=== PATIENT | female | born 1940 | race Caucasian/White ===

== ENCOUNTER 2016-11-16 12:42 | Inpatient (IN) | payer MEDICARE, MEDICAID ==
[~2016-11-16] VITALS: Ht 152.4 cm; Wt 59.2 kg
--- NOTE | 2016-11-16 12:57 | NUR ---
PT IS IN ROOM #2A. DR RANKIN EVALUATED THE PT.
[2016-11-16] MEDS ORDERED: IV NORMAL SALINE 500 ML BAG IV ONE (13:15)
[2016-11-16 13:33] LABS: BASOPHILS % (AUTO) 0.6 % (0.0-2.0); EOSINOPHILS # (AUTO) 0.5 K/uL (0.0-0.7); EOSINOPHILS % (AUTO) 7.2 % (0.0-7.0); HEMATOCRIT 36.7 % (37-47); HEMOGLOBIN 12.1 G/DL (12.0-16.0); LYMPHOCYTES # (AUTO) 1.4 K/UL (0.8-4.8); LYMPHOCYTES % (AUTO) 19.8 % (20.5-51.5); MEAN CORPUSCULAR HEMOGLOBIN 31.9 UUG (27.0-31.0); MEAN CORPUSCULAR HGB CONC 33 g/dL (32.0-37.0); MEAN CORPUSCULAR VOLUME 96.6 FL (81.0-99.0); MONOCYTES # (AUTO) 0.6 K/UL (0.1-1.30); MONOCYTES % (AUTO) 8.1 % (0.0-11.0); NEUTROPHILS # (AUTO) 4.8 K/UL (1.8-8.9); NEUTROPHILS % (AUTO) 64.3 % (38.5-71.5); PLATELET COUNT (AUTO) 204 K/UL (150-450); WHITE BLOOD COUNT (AUTO) 7.3 K/UL (4.0-11.2)
[2016-11-16 13:37] LABS: CARBON DIOXIDE 33 mmol/L (21-32); CHLORIDE 95 mmol/L (98-107); CREATININE 5.1 mg/dL (0.6-1.3); GLUCOSE 173 mg/dL (74-106); POTASSIUM 4.8 mmol/L (3.5-5.1); UREA NITROGEN, BLOOD 26 mg/dL (7-18)
[2016-11-16 13:42] LABS: ALANINE AMINOTRANSFERASE 19 U/L (14-59); ALKALINE PHOSPHATASE 81 U/L (50-136); ASPARTATE AMINOTRANSFERASE 15 U/L (15-37); BILIRUBIN,DIRECT 0.1 mg/dL (0.0-0.2); BILIRUBIN,TOTAL 0.4 mg/dL (0.2-1.0); TOTAL PROTEIN, SERUM 7.3 g/dL (6.4-8.2)
[2016-11-16] MEDS ORDERED: CALC-903 PO (13:42)
[2016-11-16] MEDS ORDERED: SPIR25TA4 PO (13:42)
[2016-11-16] MEDS ORDERED: GLIP5TAB13 PO (13:42)
[2016-11-16] MEDS ORDERED: CHOL10002 PO (13:42)
[2016-11-16] MEDS ORDERED: CLON0.1T PO (13:42)
[2016-11-16] MEDS ORDERED: ATOR20TA PO (13:42)
[2016-11-16] MEDS ORDERED: CALC-494 PO (13:42)
[2016-11-16] MEDS ORDERED: CARV12.52 PO (13:42)
[2016-11-16] MEDS ORDERED: OMEG1CAP PO (13:42)
[2016-11-16] MEDS ORDERED: ASPI81TA31 PO (13:42)
[2016-11-16] MEDS ORDERED: DEXT31GE3 PO (13:42)
[2016-11-16] MEDS ORDERED: GLUC1KIT IJ (13:42)
[2016-11-16] MEDS ORDERED: LISI-603 PO (13:42)
[2016-11-16] MEDS ORDERED: BLOO-140 IN (13:42)
[2016-11-16] MEDS ORDERED: MELA3TAB PO (13:42)
[2016-11-16] MEDS ORDERED: HYDR-4077 PO (13:42)
[2016-11-16] MEDS ORDERED: NIFE30TA2 PO (13:42)
[2016-11-16 14:01] LABS: *BILIRUBIN,URIN NEGATIVE (NEGATIVE); *BLOOD, URINE Trace-intact (NEGATIVE); *CLARITY,URINE SLIGHTLY CLOUDY (CLEAR); *COLOR,URINE LIGHT YELLOW (YELLOW); *KETONES,URINE NEGATIVE (NEGATIVE); *UROBILINOGEN,URINE 0.2 E.U./dl (NORMAL); LEUKOCYTE ESTERASE ,URINE 1+ (NEGATIVE); NITRITE, URINE NEGATIVE (NEGATIVE); PH,URINE 8.5 (5.0-8.0)
[2016-11-16 14:03] LABS: *PROTEIN,URINE 3+ (NEGATIVE); UGLUCOSE 1+ (NEGATIVE)
[2016-11-16 14:08] LABS: BACTERIA,URINE MODERATE /HPF (NONE SEEN); RBC,URINE 0-3 /HPF (0-3); SQUAMOUS EPITHELIAL CELL,UR MANY /HPF (NONE SEEN)
[2016-11-16 14:20] VITALS: BP 155/55
--- NOTE | 2016-11-16 15:56 | NUR ---
REPORT WAS GIVEN TO RN M/S , PT WAS TRANSFERED TO ROOM #217.
--- NOTE | 2016-11-16 16:20 | NUR ---
patient admit at Med/Surg complained of weakness. she is on dialysis with history of Dementia HTN and DM type2. Patient is under care of Dr.Oleg Blake. MD notified of admission and done at [facility].
[2016-11-16] MEDS ORDERED: TEMAZEPAM 15 MG CAPSULE PO PRN (17:15)
[2016-11-16] MEDS ORDERED: DEXTROSE 50% 50 ML DISP.SYRIN IV PRN (17:15)
[2016-11-16] MEDS ORDERED: MORPHINE SULFATE 2 MG/1 ML DISP.SYRIN IV PRN (17:15)
[2016-11-16] MEDS ORDERED: CARVEDILOL 12.5 MG TABLET PO SCH (17:15)
[2016-11-16] MEDS ORDERED: ACETAMINOPHEN 325 MG TABLET PO PRN (17:15)
[2016-11-16] MEDS ORDERED: TEMAZEPAM 7.5 MG CAPSULE PO PRN (17:45)
[2016-11-16] MEDS ORDERED: MORPHINE SULFATE 4 MG/1 ML DISP.SYRIN IV PRN (17:45)
[2016-11-16] MEDS: CARVEDILOL 25 MG TABLET PO SCH (18:26)
[2016-11-16] MEDS: CEFTRIAXONE 1 G in IV DEXTROSE 5% 50 ML IV SCH (18:27)
[2016-11-16 19:00] VITALS: BP 157/60
[2016-11-16 19:48] VITALS: BP 157/60
[2016-11-16] MEDS: DOCUSATE SODIUM 100 MG CAPSULE PO SCH (20:35)
[2016-11-16] MEDS: ATORVASTATIN 20 MG TABLET PO SCH (20:35)
[2016-11-16] MEDS: BLOOD SUGAR DIAGNOSTIC 1 EACH STRIP VI SCH (20:40)
[2016-11-16] MEDS: INSULIN REGULAR, HUMAN 300 UNIT/3 ML VIAL SQ PRN (20:42)
[2016-11-16] MEDS: MELATONIN 3 MG TABLET PO SCH (21:50)
[2016-11-16] MEDS: hydrALAZINE HCL 50 MG TABLET PO SCH (21:50)
[2016-11-17 05:00] VITALS: BP 144/45
[2016-11-17] MEDS: PANTOPRAZOLE SODIUM 40 MG TABLET.DR PO SCH (06:23)
[2016-11-17] MEDS: hydrALAZINE HCL 50 MG TABLET PO SCH ×3 (06:23→21:55)
[2016-11-17] MEDS: BLOOD SUGAR DIAGNOSTIC 1 EACH STRIP VI SCH ×4 (06:25→20:24)
[2016-11-17 07:38] LABS: BASOPHILS # (AUTO) 0.1 K/uL (0.0-8.0); BASOPHILS % (AUTO) 0.5 % (0.0-2.0); EOSINOPHILS # (AUTO) 0.2 K/uL (0.0-0.7); EOSINOPHILS % (AUTO) 1.9 % (0.0-7.0); HEMATOCRIT 37.2 % (37-47); HEMOGLOBIN 12.4 G/DL (12.0-16.0); LYMPHOCYTES # (AUTO) 1.6 K/UL (0.8-4.8); LYMPHOCYTES % (AUTO) 14.7 % (20.5-51.5); MEAN CORPUSCULAR HEMOGLOBIN 32.2 UUG (27.0-31.0); MEAN CORPUSCULAR HGB CONC 33 g/dL (32.0-37.0); MONOCYTES # (AUTO) 0.3 K/UL (0.1-1.30); MONOCYTES % (AUTO) 2.7 % (0.0-11.0); NEUTROPHILS # (AUTO) 8.4 K/UL (1.8-8.9); NEUTROPHILS % (AUTO) 80.2 % (38.5-71.5); PLATELET COUNT (AUTO) 177 K/UL (150-450); RED BLOOD CELL COUNT(AUTO) 3.84 MIL/UL (4.2-5.4); WHITE BLOOD COUNT (AUTO) 10.6 K/UL (4.0-11.2)
[2016-11-17] MEDS: glipiZIDE 5 MG TABLET PO SCH ×2 (07:48→16:55)
[2016-11-17] MEDS: CARVEDILOL 25 MG TABLET PO SCH ×2 (07:51→17:05)
[2016-11-17 08:00] LABS: IRON, SERUM 57 ug/dL (50-175)
[2016-11-17 08:01] LABS: ALANINE AMINOTRANSFERASE 21 U/L (14-59); ALKALINE PHOSPHATASE 77 U/L (50-136); ASPARTATE AMINOTRANSFERASE 31 U/L (15-37); BILIRUBIN,TOTAL 0.7 mg/dL (0.2-1.0); CARBON DIOXIDE 29 mmol/L (21-32); CHLORIDE 95 mmol/L (98-107); CHOLESTEROL 182 mg/dL (<200); CREATININE 6.5 mg/dL (0.6-1.3); GLUCOSE 163 mg/dL (74-106); HDL CHOLESTEROL 53 mg/dL (40-60); MAGNESIUM 2.2 mg/dL (1.8-2.4); PHOSPHOROUS 5.1 mg/dL (2.5-4.9); POTASSIUM 5.5 mmol/L (3.5-5.1); TOTAL PROTEIN, SERUM 7.4 g/dL (6.4-8.2); TRIGLYCERIDES 61 MG/DL (30-150); UREA NITROGEN, BLOOD 40 mg/dL (7-18)
[2016-11-17] MEDS: LISINOPRIL 20 MG TABLET PO SCH ×2 (08:08→20:25)
[2016-11-17] MEDS: CHOLECALCIFEROL 1,000 UNIT TABLET PO SCH (08:08)
[2016-11-17] MEDS: CALCIUM CARBONATE 600 MG TABLET PO SCH (08:08)
[2016-11-17] MEDS: NIFEdipine XL 30 MG TABSR PO SCH ×2 (08:08→16:55)
[2016-11-17] MEDS: ASPIRIN 81 MG TAB.CHEW PO SCH (08:08)
[2016-11-17 08:24] LABS: THYROID STIMULATING HORMONE 2.025 mIU/mL (0.358-3.740)
[2016-11-17] MEDS ORDERED: OMEGA-3 FATTY ACIDS/FISH OIL CAPSULE PO SCH (09:00)
--- NOTE | 2016-11-17 09:58 | NUR ---
PT OFF UNIT VIA BED FOR CT OF HEAD. PT. RESTING COMFORTABLY.
--- NOTE | 2016-11-17 10:20 | NUR ---
PT. RETURN VIA BED FROM CT. PT. TOL. FELICIANO. BED IN LOWEST POSITION. CALL LIGHT W/IN REACH. Addendum: 11/17/16 at 1022 by NIRAV AGEE RN Amended: Links added.
[2016-11-17 11:08] VITALS: BP 157/55
--- NOTE | 2016-11-17 12:07 | NUR ---
DIALYSIS NURSE AT .
[2016-11-17] MEDS: INSULIN REGULAR, HUMAN 300 UNIT/3 ML VIAL SQ PRN (13:18)
[2016-11-17 15:10] VITALS: BP 140/65
[2016-11-17] MEDS: CEFTRIAXONE 1 G in IV DEXTROSE 5% 50 ML IV SCH (17:04)
--- NOTE | 2016-11-17 18:41 | NUR ---
Pt. tolerated dialysis. Spoke with daughter re. pt. status. per phone. Fair to good appetite. No acute distress.
[2016-11-17 20:00] VITALS: BP 109/77
[2016-11-17] MEDS: ATORVASTATIN 20 MG TABLET PO SCH (20:25)
[2016-11-17] MEDS: MELATONIN 3 MG TABLET PO SCH (20:26)
[2016-11-17] MEDS: DOCUSATE SODIUM 100 MG CAPSULE PO SCH (20:26)
[2016-11-18] MEDS: CLONIDINE HCL 0.1 MG TABLET PO PRN (04:10)
[2016-11-18 04:37] VITALS: BP 165/65
--- NOTE | 2016-11-18 06:30 | NUR ---
PT BARELY SLEPT THROUGHOUT THE SHIFT, PT STATED "I AM NOT SLEEPY". PT IS IN NO ACUTE DISTRESS, ACCUCHECKS ORDERED, NO HYPO/HYPERGLYCEMIA EPISODES NOTED. PAULINE FISTULA INTACT, NO S/S OF BLEEDING. PT FREQUENTLY AMBULATES UNASSISTED TO THE TOILET. CONSTANT REMINDERS TO PATIENT REGARDING SAFETY/FALL RISK, TO ASK ASSISTANCE WHEN GOING TO THE TOILET. PT VERBALIZED UNDERSTANDING BUT STILL GOES OUT OF BED. CALL LIGHT WITHIN REACH, BED ALARM ON. WILL CONTINUE TO MONITOR.
[2016-11-18] MEDS: PANTOPRAZOLE SODIUM 40 MG TABLET.DR PO SCH (06:34)
[2016-11-18] MEDS: glipiZIDE 5 MG TABLET PO SCH ×2 (06:34→18:03)
[2016-11-18] MEDS: BLOOD SUGAR DIAGNOSTIC 1 EACH STRIP VI SCH ×4 (06:34→20:35)
[2016-11-18] MEDS: hydrALAZINE HCL 50 MG TABLET PO SCH ×3 (06:35→22:15)
[2016-11-18 06:59] LABS: BASOPHILS # (AUTO) 0.1 K/uL (0.0-8.0); BASOPHILS % (AUTO) 0.9 % (0.0-2.0); EOSINOPHILS # (AUTO) 0.6 K/uL (0.0-0.7); HEMATOCRIT 32.5 % (37-47); HEMOGLOBIN 11.1 G/DL (12.0-16.0); LYMPHOCYTES % (AUTO) 27.3 % (20.5-51.5); MEAN CORPUSCULAR HEMOGLOBIN 32.8 UUG (27.0-31.0); MEAN CORPUSCULAR HGB CONC 34 g/dL (32.0-37.0); MEAN CORPUSCULAR VOLUME 96.1 FL (81.0-99.0); MONOCYTES # (AUTO) 0.7 K/UL (0.1-1.30); MONOCYTES % (AUTO) 9.5 % (0.0-11.0); NEUTROPHILS # (AUTO) 3.8 K/UL (1.8-8.9); NEUTROPHILS % (AUTO) 54.3 % (38.5-71.5); PLATELET COUNT (AUTO) 189 K/UL (150-450); RED BLOOD CELL COUNT(AUTO) 3.38 MIL/UL (4.2-5.4); WHITE BLOOD COUNT (AUTO) 7.2 K/UL (4.0-11.2)
[2016-11-18 07:20] LABS: CARBON DIOXIDE 29 mmol/L (21-32); CHLORIDE 102 mmol/L (98-107); CREATININE 5.4 mg/dL (0.6-1.3); GLUCOSE 123 mg/dL (74-106); MAGNESIUM 2.3 mg/dL (1.8-2.4); PHOSPHOROUS 4.5 mg/dL (2.5-4.9); POTASSIUM 4.2 mmol/L (3.5-5.1); UREA NITROGEN, BLOOD 33 mg/dL (7-18)
[2016-11-18] MEDS: OMEGA-3 FATTY ACIDS/FISH OIL CAPSULE PO SCH (08:49)
[2016-11-18] MEDS: CHOLECALCIFEROL 1,000 UNIT TABLET PO SCH (08:50)
[2016-11-18] MEDS: CALCIUM CARBONATE 600 MG TABLET PO SCH (08:50)
[2016-11-18] MEDS: LISINOPRIL 20 MG TABLET PO SCH ×2 (08:50→20:36)
[2016-11-18] MEDS: ASPIRIN 81 MG TAB.CHEW PO SCH (08:50)
[2016-11-18] MEDS: CARVEDILOL 25 MG TABLET PO SCH ×2 (08:51→18:04)
[2016-11-18] MEDS: NIFEdipine XL 30 MG TABSR PO SCH ×2 (08:53→18:04)
[2016-11-18 11:48] VITALS: BP 158/58
[2016-11-18] MEDS: INSULIN REGULAR, HUMAN 300 UNIT/3 ML VIAL SQ PRN ×2 (12:57→20:38)
[2016-11-18 15:29] VITALS: BP 150/62
[2016-11-18] MEDS: CEFTRIAXONE 1 G in IV DEXTROSE 5% 50 ML IV SCH (18:05)
--- NOTE | 2016-11-18 18:56 | NUR ---
PT. REQUESTING TO SLEEP FOR PART OF AM. OOB TO BR AND CHAIR FOR MEALS. GOOD APPETITE. NO ACUTE DISTRESS NOTED. PT. WATCHING TV AND SHE FEELS MORE RESTED IN AFTERNOON.
[2016-11-18] MEDS: ATORVASTATIN 20 MG TABLET PO SCH (20:35)
[2016-11-18] MEDS: DOCUSATE SODIUM 100 MG CAPSULE PO SCH (20:35)
[2016-11-18] MEDS: MELATONIN 3 MG TABLET PO SCH (20:37)
--- NOTE | 2016-11-18 21:51 | NUR ---
RECEIVED PT IN BED, ALERT AND RESPONSIVE. RESP IS EVEN AND UNLABORED NO SOB, NO ACUTE DISTRESS. NO C/O PAIN AT THIS TIME. CALL LIGHT WITH IN REACH. WILL CONT TO MONITOR.
[2016-11-19 04:24] VITALS: BP 175/54
[2016-11-19 05:29] VITALS: BP 151/47
[2016-11-19 05:54] LABS: BASOPHILS # (AUTO) 0.1 K/uL (0.0-8.0); EOSINOPHILS # (AUTO) 0.6 K/uL (0.0-0.7); EOSINOPHILS % (AUTO) 7.6 % (0.0-7.0); HEMATOCRIT 31.6 % (37-47); LYMPHOCYTES # (AUTO) 2.3 K/UL (0.8-4.8); LYMPHOCYTES % (AUTO) 30.5 % (20.5-51.5); MEAN CORPUSCULAR HEMOGLOBIN 33.3 UUG (27.0-31.0); MEAN CORPUSCULAR HGB CONC 35 g/dL (32.0-37.0); MEAN CORPUSCULAR VOLUME 95.8 FL (81.0-99.0); MONOCYTES # (AUTO) 0.6 K/UL (0.1-1.30); NEUTROPHILS # (AUTO) 3.9 K/UL (1.8-8.9); NEUTROPHILS % (AUTO) 52.9 % (38.5-71.5); PLATELET COUNT (AUTO) 188 K/UL (150-450); WHITE BLOOD COUNT (AUTO) 7.5 K/UL (4.0-11.2)
[2016-11-19 06:11] LABS: CARBON DIOXIDE 28 mmol/L (21-32); CHLORIDE 99 mmol/L (98-107); CREATININE 7.2 mg/dL (0.6-1.3); GLUCOSE 86 mg/dL (74-106); MAGNESIUM 2.4 mg/dL (1.8-2.4); PHOSPHOROUS 6.2 mg/dL (2.5-4.9); POTASSIUM 4.2 mmol/L (3.5-5.1); UREA NITROGEN, BLOOD 46 mg/dL (7-18)
[2016-11-19] MEDS: BLOOD SUGAR DIAGNOSTIC 1 EACH STRIP VI SCH ×4 (06:39→20:37)
[2016-11-19] MEDS: hydrALAZINE HCL 50 MG TABLET PO SCH ×3 (06:40→21:45)
[2016-11-19] MEDS: PANTOPRAZOLE SODIUM 40 MG TABLET.DR PO SCH (06:40)
[2016-11-19] MEDS: glipiZIDE 5 MG TABLET PO SCH ×2 (06:40→16:52)
--- NOTE | 2016-11-19 07:05 | NUR ---
Pt is in bed awake, alert and responsive. Resp is even and unlabored no sob. No evidence of acute distress, bed in low position c side rails up x2. Call light is within reach.
--- NOTE | 2016-11-19 07:49 | NUR ---
Received report from hourly shift nurse, patient is in bed awake, no evidence of distress, no SOB, bed in low position, side rails up x2. Patient is alert and oriented, watching TV, plan of care explained for the day.
[2016-11-19] MEDS: OMEGA-3 FATTY ACIDS/FISH OIL CAPSULE PO SCH (08:19)
[2016-11-19] MEDS: ASPIRIN 81 MG TAB.CHEW PO SCH (08:19)
[2016-11-19] MEDS: CALCIUM CARBONATE 600 MG TABLET PO SCH (08:20)
[2016-11-19] MEDS: CHOLECALCIFEROL 1,000 UNIT TABLET PO SCH (08:20)
[2016-11-19] MEDS: NIFEdipine XL 30 MG TABSR PO SCH ×2 (08:21→16:53)
[2016-11-19] MEDS: LISINOPRIL 20 MG TABLET PO SCH ×2 (08:21→20:36)
[2016-11-19] MEDS: CARVEDILOL 25 MG TABLET PO SCH ×2 (08:22→16:53)
[2016-11-19] MEDS: CLONIDINE HCL 0.1 MG TABLET PO PRN (11:36)
[2016-11-19] MEDS: INSULIN REGULAR, HUMAN 300 UNIT/3 ML VIAL SQ PRN ×3 (11:42→20:35)
[2016-11-19 11:44] VITALS: BP 191/58
[2016-11-19 12:16] VITALS: BP 176/52
[2016-11-19 16:08] VITALS: BP 142/55
--- NOTE | 2016-11-19 16:34 | NUR ---
gave report to leela as the nurse for the remainder of the shift. patient is in bed, side rails up x2, bed in low position, patient does not appear to be in any distress, no SOB, alert and oriented watching TV.
[2016-11-19] MEDS: CEFTRIAXONE 1 G in IV DEXTROSE 5% 50 ML IV SCH (16:56)
--- NOTE | 2016-11-19 19:33 | NUR ---
Received report from AM shift, pt is in bed. Awake alert and responsive. Resp is even and unlabored. No SOB, No acute distress. Pt in bed, resting comfortably, watching tv. Call light within reach. Will cont to monitor.
[2016-11-19 19:51] VITALS: BP 156/57
[2016-11-19] MEDS: MELATONIN 3 MG TABLET PO SCH (20:36)
[2016-11-19] MEDS: DOCUSATE SODIUM 100 MG CAPSULE PO SCH (20:36)
[2016-11-19] MEDS: ATORVASTATIN 20 MG TABLET PO SCH (20:36)
[2016-11-20 05:03] VITALS: BP 138/55
[2016-11-20] MEDS: hydrALAZINE HCL 50 MG TABLET PO SCH ×3 (05:14→21:36)
[2016-11-20] MEDS: PANTOPRAZOLE SODIUM 40 MG TABLET.DR PO SCH (06:56)
[2016-11-20] MEDS: BLOOD SUGAR DIAGNOSTIC 1 EACH STRIP VI SCH ×4 (06:56→21:08)
--- NOTE | 2016-11-20 07:00 | NUR ---
PT IN BED, RESP IS EVEN AND UNLABORED. RESP IS EVEN AND UNLABORED. NO SOB. ALL DUE MEDS GIVEN ORDERED AND ANASTACIO WELL. FSBS NOTED AT 51, NO DIAPHORESIS, CHILLS WEAKNESS NOTED. PROVIDED A CUP OF ORANGE JUICE AND 2 PIPER CRACKERS TO PT AND ANASTACIO WELL. CALL LIGHT WITHIN REACH, WILL CONT TO MONITOR.
[2016-11-20] MEDS: glipiZIDE 5 MG TABLET PO SCH ×2 (07:30→17:23)
[2016-11-20] MEDS: ASPIRIN 81 MG TAB.CHEW PO SCH (08:25)
[2016-11-20] MEDS: OMEGA-3 FATTY ACIDS/FISH OIL CAPSULE PO SCH (08:25)
[2016-11-20] MEDS: CALCIUM CARBONATE 600 MG TABLET PO SCH (08:26)
[2016-11-20] MEDS: CHOLECALCIFEROL 1,000 UNIT TABLET PO SCH (08:26)
[2016-11-20] MEDS: CARVEDILOL 25 MG TABLET PO SCH ×2 (08:36→17:23)
[2016-11-20] MEDS: NIFEdipine XL 30 MG TABSR PO SCH ×2 (08:37→17:23)
[2016-11-20] MEDS: LISINOPRIL 20 MG TABLET PO SCH ×2 (08:37→20:28)
[2016-11-20] MEDS: MINOXIDIL 2.5 MG TABLET PO SCH ×2 (11:19→20:28)
[2016-11-20 16:52] VITALS: BP 167/63
[2016-11-20] MEDS: CEFTRIAXONE 1 G in IV DEXTROSE 5% 50 ML IV SCH (17:29)
--- NOTE | 2016-11-20 18:13 | NUR ---
PATIENT HAD DIALYSIS TODAY, 2.5L REMOVED, PATIENT'S BP CONTINUES TO BE HIGH DURING DIALYSIS AND AFTER MEDICATION INTERVENTION, PHYSICIAN IS AWARE. PATIENT IS IN BED WATCHING TV, NO EVIDENCE OF DISTRESS NOTED, NO SOB.
[2016-11-20 19:00] VITALS: BP 174/64
--- NOTE | 2016-11-20 19:30 | NUR ---
RECEIVED PATIENT LAYING IN BED COMFORTABLY. NO ACUTE DISTRESS NOTED. SAFETY INITIATED. NOTED AV SHUNT ON THE LEFT UPPER ARM WRAPPED UP WITH KIRLEX. SKIN INTACT. BRP. CALL LIGHT WITHIN REACH. WILL CONTINUE TO MONITOR.
[2016-11-20] MEDS: DOCUSATE SODIUM 100 MG CAPSULE PO SCH (20:27)
[2016-11-20] MEDS: ATORVASTATIN 20 MG TABLET PO SCH (20:28)
[2016-11-20] MEDS: MELATONIN 3 MG TABLET PO SCH (20:31)
[2016-11-20] MEDS: INSULIN REGULAR, HUMAN 300 UNIT/3 ML VIAL SQ PRN (21:07)
[2016-11-20 23:14] VITALS: BP 155/56
[2016-11-21 04:00] VITALS: BP 135/52
--- NOTE | 2016-11-21 06:19 | NUR ---
PATIENT SLEPT INTERMITTENTLY T/O THE NIGHT. NO ACUTE DISTRESS NOTED. BRP. AV SHUNT ON THE LEFT UPPER ARM PATENT AND INTACT. ALL NEEDS MET. SAFETY AND COMFORT MEASURES MAINTAINED T/O SHIFT. CALL LIGHT WITHIN REACH. B/P WAS ALL OVER THE PLACE T/O SHIFT. MEDS GIVEN ORDERED. CLOSELY MONITORED B/P. CONTROLLED. 0400 V/S WNL.
[2016-11-21] MEDS: glipiZIDE 5 MG TABLET PO SCH ×2 (06:32→16:10)
[2016-11-21] MEDS: hydrALAZINE HCL 50 MG TABLET PO SCH ×2 (06:32→14:00)
[2016-11-21] MEDS: PANTOPRAZOLE SODIUM 40 MG TABLET.DR PO SCH (06:32)
[2016-11-21] MEDS: BLOOD SUGAR DIAGNOSTIC 1 EACH STRIP VI SCH ×3 (06:32→16:10)
[2016-11-21] MEDS: MINOXIDIL 2.5 MG TABLET PO SCH (08:22)
[2016-11-21] MEDS: CHOLECALCIFEROL 1,000 UNIT TABLET PO SCH (08:22)
[2016-11-21] MEDS: ASPIRIN 81 MG TAB.CHEW PO SCH (08:22)
[2016-11-21] MEDS: OMEGA-3 FATTY ACIDS/FISH OIL CAPSULE PO SCH (08:22)
[2016-11-21] MEDS: NIFEdipine XL 30 MG TABSR PO SCH ×2 (08:22→16:15)
[2016-11-21] MEDS: CARVEDILOL 25 MG TABLET PO SCH (08:23)
[2016-11-21] MEDS: LISINOPRIL 20 MG TABLET PO SCH (08:23)
[2016-11-21] MEDS: CALCIUM CARBONATE 600 MG TABLET PO SCH (08:23)
--- NOTE | 2016-11-21 08:43 | NUR ---
PT AWAKE IN BED, WATCHING TV, ATE BREAKFAST AND MORNING MEDICATIONS WERE ADMINISTERED, BP 160/56. BED ALARM ON AND REMINDED TO USE CALL WHEN NEEDS FOR RESTROOM ARISE. ALL SAFETY AND COMFORT MEASURES ATTENDED TO, CALL LIGHT IN REACH, WILL CONTINUE TO MONITOR
[2016-11-21 11:50] VITALS: BP 169/48
[2016-11-21] MEDS ORDERED: MINO2.5T PO (14:22)
[2016-11-21] MEDS ORDERED: HYDR50TA68 PO (14:22)
[2016-11-21] MEDS ORDERED: PANT40TA2 PO (14:22)
[2016-11-21 16:00] VITALS: BP 152/37
[2016-11-21 16:15] VITALS: BP 185/60
--- NOTE | 2016-11-21 17:16 | NUR ---
DISCHARGE PROTOCOL FOLLOWED, PT VERY ANTSY TO LEAVE. IV REMOVED WITH NO REDNESS OR IRRITATION NOTED, ALL BELONGINGS ACCOUNTED FOR AND SENT WITH PATIENT. PT LEFT VIA GURNEY WITH AMBULANCE STAFF, REPORT CALLED AND GIVEN TO RN AT [facility]
[2016-11-21] MEDS ORDERED: MINOXIDIL 2.5 MG TABLET PO SCH (21:00)
== END 2016-11-21 17:00 | DRG 291 ==
LOC: ER 12:42 → MED 16:03
PROVIDERS: ADMIT Internal Medicine; ATTEND Internal Medicine
DX: I13.2 Hypertensive heart and chronic kidney disease with heart failure and with stage 5 chronic kidney disease, or end stage renal disease (principal); N18.6 End stage renal disease; I50.33 Acute on chronic diastolic (congestive) heart failure; D68.59 Other primary thrombophilia; N39.0 Urinary tract infection, site not specified; F01.51 Vascular dementia, unspecified severity, with behavioral disturbance; Z99.2 Dependence on renal dialysis; G44.009 Cluster headache syndrome, unspecified, not intractable; R26.9 Unspecified abnormalities of gait and mobility; Z74.09 Other reduced mobility; Z88.8 Allergy status to other drugs, medicaments and biological substances; I11.0 Hypertensive heart disease with heart failure; M19.90 Unspecified osteoarthritis, unspecified site; Z79.4 Long term (current) use of insulin; Z79.84 Long term (current) use of oral hypoglycemic drugs; E11.22 Type 2 diabetes mellitus with diabetic chronic kidney disease; I27.2 Other secondary pulmonary hypertension; Z86.73 Personal history of transient ischemic attack (TIA), and cerebral infarction without residual deficits; E03.9 Hypothyroidism, unspecified; E78.5 Hyperlipidemia, unspecified; D64.9 Anemia, unspecified; Z79.899 Other long term (current) drug therapy; I70.0 Atherosclerosis of aorta; R53.1 Weakness
CPT/HCPCS: 36415; 70030-TC; 70450; 71010; 83550; 83735; 84100; 84443; 85025; 85730; 86850; 86900; 86901; 87086; 93005; 93307; 97161; A4663; J0696; J1815; J7040; J7050; J7060

== ENCOUNTER 2018-06-28 22:37 | Inpatient (IN) | payer MEDICARE, OTHER ==
[~2018-06-28] VITALS: Ht 157.5 cm; Wt 50.3 kg
[~2018-06-28 22:37] MED LIST: ACET-2154 PO; ASPI81TA31 PO; BLOO-140 IN; CALC-903 PO; CARV12.52 PO; CHOL10002 PO; CLON0.1T PO; DEXT31GE5 PO; GLIP5TAB13 PO; GLUC1KIT IJ; HYDR100T27 PO; LISI40TA4 PO; MINO2.5T PO; NIFE60TA2 PO; OMEG1CAP PO
--- NOTE | 2018-06-28 22:45 | NUR ---
Dr. Benito at bedside for MSE.
[2018-06-28] MEDS ORDERED: IV NORMAL SALINE 1000 ML BAG IV ONE (23:00)
[2018-06-28] MEDS ORDERED: ONDANSETRON 4 MG/2 ML VIAL IV ONE (23:00)
[2018-06-28] MEDS ORDERED: ONDANSETRON 4 MG/2 ML VIAL ONE (23:07)
[2018-06-28 23:17] LABS: BASOPHILS # (AUTO) 0.1 K/uL (0.0-8.0); BASOPHILS % (AUTO) 0.9 % (0.0-2.0); EOSINOPHILS # (AUTO) 0.3 K/uL (0.0-0.7); HEMATOCRIT 36.9 % (31.2-41.9); HEMOGLOBIN 12.3 g/dL (10.9-14.3); LYMPHOCYTES # (AUTO) 0.8 K/uL (20.0-40.0); LYMPHOCYTES % (AUTO) 6.1 % (20.5-51.5); MEAN CORPUSCULAR HGB CONC 33 g/dL (32.3-35.6); MEAN CORPUSCULAR VOLUME 95.9 fL (75.5-95.3); MONOCYTES # (AUTO) 0.5 K/uL (2.0-10.0); MONOCYTES % (AUTO) 3.8 % (0.0-11.0); NEUTROPHILS # (AUTO) 11.5 K/uL (1.8-8.9); NEUTROPHILS % (AUTO) 87.2 % (38.5-71.5); PLATELET COUNT (AUTO) 136 K/uL (179-408); RED BLOOD CELL COUNT(AUTO) 3.85 MIL/uL (3.63-4.92); WHITE BLOOD COUNT (AUTO) 13.1 K/uL (3.8-11.8)
--- NOTE | 2018-06-28 23:23 | NUR ---
Pt out of ER for CT.
[2018-06-28 23:24] LABS: ALANINE AMINOTRANSFERASE 15 U/L (14-59); ALKALINE PHOSPHATASE 86 U/L (50-136); ASPARTATE AMINOTRANSFERASE 18 U/L (15-37); BILIRUBIN,DIRECT 0.1 mg/dL (0.0-0.2); BILIRUBIN,TOTAL 0.5 mg/dL (0.2-1.0); CARBON DIOXIDE 30 mmol/L (21-32); CHLORIDE 102 mmol/L (98-107); CREATININE 2.6 mg/dL (0.6-1.3); GLUCOSE 171 mg/dL (74-106); LIPASE 299 U/L (73-393); TOTAL PROTEIN, SERUM 7.5 g/dL (6.4-8.2); UREA NITROGEN, BLOOD 14 mg/dL (7-18)
--- NOTE | 2018-06-28 23:45 | NUR ---
Pt back to ER from CT.
--- NOTE | 2018-06-29 02:38 | NUR ---
Report given to Tyron RAM Medsurg.
[2018-06-29 03:11] VITALS: BP 136/40
--- NOTE | 2018-06-29 03:30 | NUR ---
THIS IS A 77 Y.O. FEMALE ADMITTED FOR COLITIS, SHE DENIES ABDOMINAL PAIN OR NAUSEA ON ASSESSMENT. ADMISSION ASSESSMENT DONE, SAFETY MEASURES INITIATED, CALL LIGHT LEFT WITHIN PATIENT'S REACH, BED ALARM ON.
[2018-06-29] MEDS ORDERED: MAGNESIUM HYDROXIDE 30 ML LIQUID UDC PO PRN (05:00)
[2018-06-29] MEDS ORDERED: ZOLPIDEM 5 MG TABLET PO PRN (05:00)
[2018-06-29] MEDS ORDERED: ACETAMINOPHEN 325 MG TABLET PO PRN (05:00)
[2018-06-29] MEDS ORDERED: ONDANSETRON 4 MG/2 ML VIAL IV PRN (05:00)
[2018-06-29] MEDS ORDERED: HYDROCODONE/APAP 5-325MG TABLET PO PRN (05:00)
[2018-06-29] MEDS ORDERED: MORPHINE SULFATE 2 MG/1 ML DISP.SYRIN IV PRN (05:00)
[2018-06-29] MEDS ORDERED: CIPROFLOXACIN IV 400 MG in PREMIXED 1 EACH IV SCH (05:30)
[2018-06-29] MEDS ORDERED: METRONIDAZOLE 500 MG/NS 100ML 500 MG in PREMIXED 1 EACH IV SCH (06:00)
[2018-06-29] MEDS: IV NS 1000 ML 1,000 ML IV PRN ×2 (06:07→21:27)
[2018-06-29] MEDS: METRONIDAZOLE 500 MG/NS 100ML 500 MG in PREMIXED 1 EACH IV SCH ×3 (08:11→21:23)
[2018-06-29] MEDS: CIPROFLOXACIN IV 400 MG in PREMIXED 1 EACH IV SCH (08:15)
[2018-06-29] MEDS: PANTOPRAZOLE SODIUM 40 MG VIAL IV SCH (08:15)
[2018-06-29 11:13] VITALS: BP 124/43
[2018-06-29 15:44] VITALS: BP 127/42
--- NOTE | 2018-06-29 19:33 | NUR ---
ASLEEP BUT EASILY AROUSABLE, NO S/S OF ACUTE DISTRESS OR DISCOMFORT. SAFETY MEASURES IN PLACE, WILL CONTINUE TO MONITOR PATIENT
[2018-06-29 20:00] VITALS: BP 140/46
[2018-06-30 04:00] VITALS: BP 153/48
[2018-06-30] MEDS: METRONIDAZOLE 500 MG/NS 100ML 500 MG in PREMIXED 1 EACH IV SCH ×3 (04:55→21:33)
[2018-06-30] MEDS: PANTOPRAZOLE SODIUM 40 MG VIAL IV SCH (08:05)
[2018-06-30] MEDS: CIPROFLOXACIN IV 400 MG in PREMIXED 1 EACH IV SCH (08:05)
[2018-06-30 08:14] LABS: CARBON DIOXIDE 24 mmol/L (21-32); CHLORIDE 105 mmol/L (98-107); CHOLESTEROL 171 mg/dL (<200); CREATININE 4.1 mg/dL (0.6-1.3); GLUCOSE 103 mg/dL (74-106); HDL CHOLESTEROL 50 mg/dL (40-60); MAGNESIUM 1.8 mg/dL (1.8-2.4); POTASSIUM 5.9 mmol/L (3.5-5.1); TRIGLYCERIDES 96 MG/DL (30-150); UREA NITROGEN, BLOOD 19 mg/dL (7-18)
[2018-06-30] MEDS ORDERED: SODIUM POLYSTYRENE SULFONATE 15 G/60 ML LIQUID UDC PO ONE (09:45)
[2018-06-30] MEDS: CARVEDILOL 25 MG TABLET PO SCH ×2 (10:26→17:08)
[2018-06-30] MEDS: hydrALAZINE HCL 50 MG TABLET PO SCH ×2 (10:30→21:00)
[2018-06-30] MEDS ORDERED: CARVEDILOL 12.5 MG TABLET PO SCH (10:30)
[2018-06-30] MEDS: MINOXIDIL 2.5 MG TABLET PO SCH ×2 (10:30→21:31)
[2018-06-30] MEDS ORDERED: ACETAMINOPHEN 325 MG TABLET PO PRN (10:30)
[2018-06-30] MEDS: LISINOPRIL 20 MG TABLET PO SCH (10:30)
[2018-06-30] MEDS: NIFEdipine XL 60 MG TABSR PO SCH ×2 (10:30→16:54)
[2018-06-30] MEDS ORDERED: CLONIDINE HCL 0.1 MG TABLET PO PRN (10:30)
[2018-06-30 10:32] LABS: BASOPHILS # (AUTO) 0.1 K/uL (0.0-8.0); BASOPHILS % (AUTO) 1.1 % (0.0-2.0); EOSINOPHILS # (AUTO) 0.4 K/uL (0.0-0.7); EOSINOPHILS % (AUTO) 6.8 % (0.0-7.0); HEMATOCRIT 29.9 % (31.2-41.9); HEMOGLOBIN 10.2 g/dL (10.9-14.3); LYMPHOCYTES # (AUTO) 1.5 K/uL (20.0-40.0); MEAN CORPUSCULAR HEMOGLOBIN 32.8 uug (24.7-32.8); MEAN CORPUSCULAR HGB CONC 34 g/dL (32.3-35.6); MEAN CORPUSCULAR VOLUME 96.7 fL (75.5-95.3); MONOCYTES # (AUTO) 0.4 K/uL (2.0-10.0); MONOCYTES % (AUTO) 6.2 % (0.0-11.0); NEUTROPHILS # (AUTO) 3.9 K/uL (1.8-8.9); NEUTROPHILS % (AUTO) 61.9 % (38.5-71.5); PLATELET COUNT (AUTO) 124 K/uL (179-408); WHITE BLOOD COUNT (AUTO) 6.3 K/uL (3.8-11.8)
[2018-06-30 11:28] VITALS: BP 188/56
--- NOTE | 2018-06-30 12:28 | NUR ---
pt is with dialysis procedure refused to take bp meds. made aware
[2018-06-30] MEDS: ASPIRIN 81 MG TAB.CHEW PO SCH (12:30)
[2018-06-30] MEDS: CHOLECALCIFEROL 1,000 UNIT TABLET PO SCH (12:31)
[2018-06-30] MEDS: OMEGA-3 FATTY ACIDS/FISH OIL CAPSULE PO SCH (12:31)
[2018-06-30 15:34] VITALS: BP 124/38
--- NOTE | 2018-06-30 19:35 | NUR ---
Received pt in bed, appearing to be asleep but easily arousable to verbal stimuli and light touch. AAO x 4. No acute distress noted. Verbally responsive and able to make needs known. Denies pain or discomfort at this time. All safety measures and fall precautions maintained. Call light and all personal belongings within reach. Will continue to monitor.
[2018-06-30 20:00] VITALS: BP 149/44
--- NOTE | 2018-06-30 21:34 | NUR ---
Hydralazine 100 mg held due to decreased diastolic pressure. Minoxil 5mg given as ordered, tolerated well. Will re-check BP. Safety maintained. Call light within reach. Will continue to monitor.
--- NOTE | 2018-06-30 22:30 | NUR ---
BP rechecked, noted to be 151/36. Resting comfortably in bed with no complaints. Will continue to monitor. Call light within reach.
[2018-07-01] MEDS ORDERED: CIPROFLOXACIN IV 400 MG in PREMIXED 1 EACH IV SCH (02:00)
[2018-07-01 04:00] VITALS: BP 146/43
[2018-07-01] MEDS: METRONIDAZOLE 500 MG/NS 100ML 500 MG in PREMIXED 1 EACH IV SCH (06:06)
[2018-07-01 06:53] LABS: CARBON DIOXIDE 29 mmol/L (21-32); CHLORIDE 104 mmol/L (98-107); CREATININE 3.9 mg/dL (0.6-1.3); GLUCOSE 96 mg/dL (74-106); MAGNESIUM 1.9 mg/dL (1.8-2.4); POTASSIUM 3.7 mmol/L (3.5-5.1); UREA NITROGEN, BLOOD 13 mg/dL (7-18)
--- NOTE | 2018-07-01 06:54 | NUR ---
Pt slept intermittently throughout shift. No acute distress noted. No complaints of pain. Kept clean and dry, good pericare rendered. All due ATB given as ordered, tolerated well with no adverse side effects noted. Safety maintained. Right upper arm heplock in place, flushing well - patent and intact. Call light and all personal belongings within reach. Will endorse accordingly to oncoming shift.
[2018-07-01 07:37] LABS: BASOPHILS # (AUTO) 0.1 K/uL (0.0-8.0); BASOPHILS % (AUTO) 1.3 % (0.0-2.0); EOSINOPHILS # (AUTO) 0.3 K/uL (0.0-0.7); EOSINOPHILS % (AUTO) 5.2 % (0.0-7.0); HEMATOCRIT 30.1 % (31.2-41.9); HEMOGLOBIN 10.2 g/dL (10.9-14.3); LYMPHOCYTES # (AUTO) 1.3 K/uL (20.0-40.0); LYMPHOCYTES % (AUTO) 21.2 % (20.5-51.5); MEAN CORPUSCULAR HEMOGLOBIN 32.9 uug (24.7-32.8); MEAN CORPUSCULAR HGB CONC 34 g/dL (32.3-35.6); MEAN CORPUSCULAR VOLUME 97.2 fL (75.5-95.3); MONOCYTES # (AUTO) 0.4 K/uL (2.0-10.0); MONOCYTES % (AUTO) 7.1 % (0.0-11.0); NEUTROPHILS # (AUTO) 3.9 K/uL (1.8-8.9); NEUTROPHILS % (AUTO) 65.2 % (38.5-71.5); PLATELET COUNT (AUTO) 131 K/uL (179-408)
[2018-07-01] MEDS: ASPIRIN 81 MG TAB.CHEW PO SCH (08:02)
[2018-07-01] MEDS: OMEGA-3 FATTY ACIDS/FISH OIL CAPSULE PO SCH (08:02)
[2018-07-01] MEDS: CHOLECALCIFEROL 1,000 UNIT TABLET PO SCH (08:02)
[2018-07-01] MEDS: LISINOPRIL 20 MG TABLET PO SCH (08:03)
[2018-07-01] MEDS: MINOXIDIL 2.5 MG TABLET PO SCH (08:03)
[2018-07-01] MEDS: CARVEDILOL 25 MG TABLET PO SCH (08:04)
[2018-07-01] MEDS: PANTOPRAZOLE SODIUM 40 MG VIAL IV SCH (08:06)
[2018-07-01] MEDS: NIFEdipine XL 60 MG TABSR PO SCH (09:49)
[2018-07-01] MEDS: hydrALAZINE HCL 50 MG TABLET PO SCH (09:49)
[2018-07-01 11:22] VITALS: BP 130/40
--- NOTE | 2018-07-01 14:45 | NUR ---
d/c orders received noted and carried out,d/c heplock per md orders,rn report given over half-way.pt left the facility via ambulances in stable condition
[2018-07-02] MEDS ORDERED: PANTOPRAZOLE SODIUM 40 MG TABLET.DR PO SCH (07:00)
== END 2018-07-01 15:00 | DRG 391 ==
LOC: ER 22:39 → MED 06-29 02:58 → MEDSURG3 06-29 03:41
PROVIDERS: ADMIT Nurse Practitioner Acute Care
PROC: 5A1D70Z Performance of Urinary Filtration, Intermittent, Less than 6 Hours Per Day (ICD-10-PCS; principal; 2018-06-30)
DX: A09 Infectious gastroenteritis and colitis, unspecified (principal); I50.33 Acute on chronic diastolic (congestive) heart failure; N18.6 End stage renal disease; G92 Toxic encephalopathy; I21.A1 Myocardial infarction type 2; I13.2 Hypertensive heart and chronic kidney disease with heart failure and with stage 5 chronic kidney disease, or end stage renal disease; F03.91 Unspecified dementia, unspecified severity, with behavioral disturbance; I31.3 Pericardial effusion (noninflammatory); E11.22 Type 2 diabetes mellitus with diabetic chronic kidney disease; Z99.2 Dependence on renal dialysis; Z79.4 Long term (current) use of insulin; I70.0 Atherosclerosis of aorta; E03.9 Hypothyroidism, unspecified; E78.5 Hyperlipidemia, unspecified; M89.9 Disorder of bone, unspecified; Z79.82 Long term (current) use of aspirin; Z79.899 Other long term (current) drug therapy; I07.1 Rheumatic tricuspid insufficiency; D69.6 Thrombocytopenia, unspecified; R26.9 Unspecified abnormalities of gait and mobility; G44.009 Cluster headache syndrome, unspecified, not intractable
CPT/HCPCS: 36415; 70030-TC; 83690; 83735; 84100; 85025; 90937; 93005; A4663; C9113; G0378; J0744; J2405; J3490; J7030

== ENCOUNTER 2019-04-22 14:52 | Emergency (ER) | payer MEDICARE, OTHER ==
[~2019-04-22] VITALS: Ht 152.4 cm; Wt 54.0 kg
[~2019-04-22 14:52] MED LIST changes: -CALC-903 PO; -DEXT31GE5 PO; -GLIP5TAB13 PO; -GLUC1KIT IJ
--- NOTE | 2019-04-22 14:55 | NUR ---
PATIENT IS AWAKE AND ALERT. DENIES PAIN. SHE STATES SHE HAD FALLEN PREVIOUSLY.
--- NOTE | 2019-04-22 18:12 | NUR ---
Patient is sitting up eating a sandwich. Waiting for ambulance to go back to [facility] and rehab.
--- NOTE | 2019-04-22 18:59 | NUR ---
HAND OFF REPORT GIVEN TO JESUS RAM
--- NOTE | 2019-04-22 19:42 | NUR ---
Patient discharged to home in stable conditon. Written and verbal after care instructions given. Patient verbalizes understanding of instructions. Patient picked up by [id number] via gurney. all belongings given to patient
[2019-04-22 21:23] VITALS: BP 124/76
== END 2019-04-22 19:42 | disposition home or self-care (01) ==
LOC: ER 14:52
DX: S00.03XA Contusion of scalp, initial encounter (principal); I13.0 Hypertensive heart and chronic kidney disease with heart failure and stage 1 through stage 4 chronic kidney disease, or unspecified chronic kidney disease; E11.22 Type 2 diabetes mellitus with diabetic chronic kidney disease; N18.9 Chronic kidney disease, unspecified; I50.9 Heart failure, unspecified; E03.9 Hypothyroidism, unspecified; E78.5 Hyperlipidemia, unspecified; Z88.8 Allergy status to other drugs, medicaments and biological substances; Z79.899 Other long term (current) drug therapy; Z79.82 Long term (current) use of aspirin; W22.8XXA Striking against or struck by other objects, initial encounter; Y93.89 Activity, other specified; Y92.89 Other specified places as the place of occurrence of the external cause; Y99.8 Other external cause status
CPT/HCPCS: 70450; A4663